=== PATIENT | female | born 1990 | race Caucasian/White ===

== ENCOUNTER 2016-07-13 23:49 | Emergency (ER) | payer SELFPAY ==
[2016-07-14] MEDS ORDERED: HYDROCODONE/ACETAMINOPHEN 5-325 MG 6 TAB/DSPK PO PRN (07:07)
[2016-07-14] MEDS ORDERED: HYDROCODONE/ACETAMINOPHEN 5-325 MG TABLET PO ONE (07:07)
[2016-07-14] MEDS ORDERED: CEPHALEXIN 500 MG CAPSULE PO ONE (07:07)
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
[2016-07-14 08:20] VITALS: BP 107/74
== END 2016-07-14 08:18 | disposition home or self-care (01) ==
LOC: ER 23:49
DX: S61.219A Laceration without foreign body of unspecified finger without damage to nail, initial encounter (principal); X99.0XXA Assault by sharp glass, initial encounter
CPT/HCPCS: 99283